=== PATIENT | female | born 1930 | race Caucasian/White ===

== ENCOUNTER 2017-11-02 16:15 | Emergency (ER) | payer MEDICARE, BC | END 2017-11-02 19:36 | disposition home or self-care (01) | LOC: E/R 16:15 | DX: S60.212A Contusion of left wrist, initial encounter (principal); R40.2142 Coma scale, eyes open, spontaneous, at arrival to emergency department; R40.2252 Coma scale, best verbal response, oriented, at arrival to emergency department; R40.2362 Coma scale, best motor response, obeys commands, at arrival to emergency department; E03.9 Hypothyroidism, unspecified; W01.0XXA Fall on same level from slipping, tripping and stumbling without subsequent striking against object, initial encounter; Y92.9 Unspecified place or not applicable; Z96.653 Presence of artificial knee joint, bilateral | CPT/HCPCS: 29125; 73110-LT; 99283-25 ==